=== PATIENT | male | born 1970 | race Caucasian/White ===

== ENCOUNTER 2023-11-11 03:47 | Day surgery (SDC) | payer OTHER, BC ==
[2023-11-07 13:07] VITALS: BMI 30.2
[2023-11-11] MEDS ORDERED: ACETAMINOPHEN 1000 MG/100 ML BAG IVPB ONE (07:48)
[2023-11-11] MEDS ORDERED: MIDAZOLAM HCL 2 MG/2 ML SINGLE DOSE VIAL ONE (07:50)
[2023-11-11] MEDS ORDERED: FENTANYL CITRATE/PF 50 MCG/ML VIAL ONE (07:50)
[2023-11-11] MEDS: ceFAZolin SODIUM 1 GM VIAL IVPB ONE (08:07)
[2023-11-11 08:36] VITALS: BP 125/86; PULSE 65; RESP 14; TEMP 98
== END 2023-11-11 10:35 | disposition home or self-care (01) ==
LOC: JASU-SURG 03:47
PROVIDERS: ATTEND Urology
PROC: 0TF3XZZ Fragmentation in Right Kidney Pelvis, External Approach (ICD-10-PCS; principal; 2023-11-11 08:00)
DX: N20.0 Calculus of kidney (principal)